=== PATIENT | female | born 1980 | race African-American/Black ===

== ENCOUNTER 2016-11-22 17:46 | Emergency (ER) | payer MEDICAID ==
[~2016-11-22] VITALS: Ht 175.3 cm; Wt 72.6 kg
[~2016-11-22 17:46] MED LIST: AUGMENTIN TAB875 MG ORAL; IBUPROFEN800 MG ORAL; NORCO 5-325 TA1 EACH ORAL
[2016-11-22 18:13] VITALS: BP 125/70
[2016-11-22] MEDS ORDERED: PredniSONE 20mg tab ORAL ONE (18:15)
[2016-11-22] MEDS ORDERED: PREDNISONE20 MG ORAL (18:23)
[2016-11-22] MEDS ORDERED: BENADRYL25 MG ORAL (18:23)
[2016-11-22 18:29] VITALS: BP 125/70
--- NOTE | 2016-11-22 21:44 | Emergency Room Report ---
History of Present Illness General Chief Complaint: Skin Rash/Abscess Source: Patient Present Illness HPI The patient is a 36-year-old female presenting for possible allergic reaction. The patient noticed intense itching , redness, and swelling of the arms, abdomen , and legs. She states that she used Benadryl and topical hydrocortisone which helped a little. The patient still complaining of intense itching. She denies any known allergies. She denies using any new products. She denies any pain. He denies shortness of breath, chest pain, throat tightness or pain, nausea, vomiting, fever, chills, dizziness Allergies: Coded Allergies: No Known Allergies (Unverified , 03/08/12) Patient History Past Medical History: see triage record Pertinent Family History: none Last Menstrual Period: 11/21/16 Now: No Reviewed Nursing Documentation: PMH: Agreed, PSxH: Agreed Nursing Documentation-PMH Past Medical History: No Stated History Review of Systems All Other Systems: negative except mentioned in HPI Physical Exam Vital Signs Date Time Temp Pulse Resp B/P Pulse Ox O2 Delivery O2 Flow Rate FiO2 11/22/16 17:59 98.2 65 14 125/70 100 Room Air Sp02 EP Interpretation: reviewed, normal General Appearance: no apparent distress, alert, GCS 15, non-toxic Head: normocephalic, atraumatic Eyes: bilateral eye PERRL, bilateral eye normal inspection ENT: hearing grossly normal, normal pharynx, no angioedema, normal voice Neck: full range of motion, supple/symm/no masses Respiratory: chest non-tender, lungs clear, normal breath sounds, speaking full sentences Gastrointestinal: normal bowel sounds, non tender, soft, non-distended, no guarding, no rebound Musculoskeletal: back normal, gait/station normal, normal range of motion, non- tender Neurologic: alert, oriented x3, responsive, motor strength/tone normal, sensory intact, speech normal Psychiatric: judgement/insight normal, memory normal, mood/affect normal, no suicidal/homicidal ideation Skin: rash - maculopapular rash of bilat arms and chest Lymphatic: no adenopathy Medical Decision Making PA Attestation Dr. Nelson is my supervising physician. Patient management was discussed with my supervising physician Diagnostic Impression: Primary Impression: Allergic reaction Qualified Codes: T78.40XA - Allergy, unspecified, initial encounter ER Course The patient is a 36-year-old female presenting for possible allergic reaction. Ddx considered include but not limited to insect bite, contact dermatitis, eczema, cellulitis Physical exam: Vitals within normal limits. No apparent distress HEENT exam is unremarkable. Oropharynx is patent. No angioedema. Lungs CTA bilat Skin: warm and dry. maculopapular rash diffusely over bilat arms. The patient is given prednisone in the ER. She is discharged home with a prescription for prednisone and Benadryl. ER precautions given Last Vital Signs Date Time Temp Pulse Resp B/P Pulse Ox O2 Delivery O2 Flow Rate FiO2 11/22/16 18:29 98.2 14 125/70 100 Room Air 11/22/16 17:59 65 Status: improved Disposition: HOME, SELF-CARE Condition: Improved Scripts Prednisone* (PREDNISONE*) 20 Mg Tablet 40 MG ORAL DAILY, #8 TAB Prov: ANNMARIE LEONE.A. 11/22/16 Diphenhydramine Hcl* (BENADRYL*) 25 Mg Capsule 25 MG ORAL Q6H Y for Itching, #15 CAP Prov: ANNMARIE LEONE.A. 11/22/16 Patient Instructions: Rash Additional Instructions: I discussed my findings with the patient. All questions and concerns have been answered. Treatment and medication compliance have been addressed. I advised the patient that they need to follow up with PMD in 3-5 days. Return to ED if symptoms worsen, new symptoms arise, or if needed for any reason. Patient verbalized understanding of discharge instructions. The patient was informed she may need to see talent scout. ANNMARIE LEONE November 22, 2016 21:44
== END 2016-11-22 18:29 | disposition home or self-care (01) ==
LOC: EMR 18:15
DX: T78.40XA Allergy, unspecified, initial encounter (principal); X58.XXXA Exposure to other specified factors, initial encounter; R21 Rash and other nonspecific skin eruption; L29.9 Pruritus, unspecified
CPT/HCPCS: 99284

== ENCOUNTER 2016-11-24 17:22 | Emergency (ER) | payer MEDICAID ==
[~2016-11-24] VITALS: Ht 175.3 cm; Wt 72.6 kg
[~2016-11-24 17:22] MED LIST changes: +BENADRYL25 MG ORAL; +PREDNISONE20 MG ORAL
[2016-11-24 17:51] VITALS: BP 129/82
[2016-11-24] MEDS ORDERED: ROBAXIN-750750 MG PO (17:56)
[2016-11-24] MEDS ORDERED: IBUPROFEN600 MG ORAL (17:56)
[2016-11-24] MEDS ORDERED: AMOXICILLIN500 MG ORAL (17:56)
[2016-11-24 18:06] VITALS: BP 129/82
--- NOTE | 2016-11-24 21:17 | Emergency Room Report ---
History of Present Illness General Chief Complaint: Neck Pain Source: Patient Present Illness [facility] The patient is a 36-year-old female presenting with left-sided neck pain. She states that she was reaching for an object at work 2 weeks prior and noticed a sharp sensation to the left side of the neck. Pain described as an 8/10 and does not radiate. Pain worse with head movement. She denies previous injury to the area. She also noticed a bump behind ear 2 days prior. She denies any recent infections and denies ear pain. She denies any other symptoms including nausea , vomiting, fever, chills, fatigue, night sweats, weight loss, cough Allergies: Coded Allergies: No Known Allergies (Unverified , 03/08/12) Patient History Past Medical History: see triage record Pertinent Family History: none Last Menstrual Period: 11/20/16 Now: No Reviewed Nursing Documentation: PMH: Agreed, PSxH: Agreed Nursing Documentation-PMH Past Medical History: No Stated History Review of Systems All Other Systems: negative except mentioned in HPI Physical Exam Vital Signs Date Time Temp Pulse Resp B/P Pulse Ox O2 Delivery O2 Flow Rate FiO2 11/24/16 17:30 97.9 71 15 129/82 99 Room Air Sp02 EP Interpretation: reviewed, normal General Appearance: no apparent distress, alert, GCS 15, non-toxic Head: normocephalic, atraumatic Eyes: bilateral eye PERRL, bilateral eye normal inspection ENT: normal pharynx, normal voice, TMs + canals normal, uvula midline Neck: full range of motion, supple, no bony tend, tender lateral - L Respiratory: chest non-tender, lungs clear, normal breath sounds, speaking full sentences Cardiovascular #1: regular rate, rhythm, no edema Musculoskeletal: back normal, gait/station normal, normal range of motion Neurologic: alert, oriented x3, responsive, motor strength/tone normal, sensory intact, speech normal Psychiatric: judgement/insight normal, memory normal, mood/affect normal, no suicidal/homicidal ideation Skin: normal color, no rash, warm/dry, well hydrated Lymphatic: other - singular lymph node enlargement of L posterior auricular Medical Decision Making PA Attestation Dr. Henry is my supervising physician. Patient management was discussed with my supervising physician Diagnostic Impression: Primary Impression: Enlarged lymph node in neck Additional Impression: Neck strain Qualified Codes: S16.1XXA - Strain of muscle, fascia and tendon at neck level , initial encounter ER Course The patient is a 36-year-old female presenting with left-sided neck pain Differential diagnoses considered but not limited to: Muscle strain, muscle spasm, lymphangitis, lymphoma, otitis media, pharyngitis, among others PE: vitals WNL. NAD Neck: There is tenderness to palpation over left paraspinous muscles. Full active range of motion. No obvious deformity. No midline tenderness HEENT: singular posterior auricular lymph node enlargement of L side. Mobile. Tender. 2cm in diameter. The patient to be discharged home with a prescription for Motrin, Robaxin, and a trial of amoxicillin. She needs to followup with primary doctor or ENT as soon as possible for further evaluation of lymph node. ER precautions given Last Vital Signs Date Time Temp Pulse Resp B/P Pulse Ox O2 Delivery O2 Flow Rate FiO2 11/24/16 18:06 97.9 15 129/82 99 Room Air 11/24/16 17:30 71 Status: improved Disposition: HOME, SELF-CARE Condition: Improved Scripts Amoxicillin* (AMOXIL*) 500 Mg Capsule 500 MG ORAL Q12HR, #20 CAP Prov: ANNMARIE LEONE P.A. 11/24/16 Ibuprofen* (MOTRIN*) 600 Mg Tablet 600 MG ORAL Q8H Y for For Pain, #30 TAB 0 Refills Prov: TERZIANANNMARIE P.A. 11/24/16 Methocarbamol* (ROBAXIN-750*) 750 Mg Tablet 750 MG PO TID, #21 TAB 0 Refills Prov: SASHAANANNMARIE P.A. 11/24/16 Patient Instructions: Lymphadenopathy, Muscle Strain Additional Instructions: I discussed my findings with the patient. All questions and concerns have been answered. Treatment and medication compliance have been addressed. Return to ED if symptoms worsen, new symptoms arise, or if needed for any reason. Patient verbalized understanding of discharge instructions. The patient will followup with primary doctor as soon as possible for further evaluation of the enlarged lymph node. Patient is informed she may undergo testing such as imaging and/or biopsy ANNMARIE LEONE November 24, 2016 21:17
== END 2016-11-24 18:08 | disposition home or self-care (01) ==
LOC: EMR 17:52
DX: R59.0 Localized enlarged lymph nodes (principal); S16.1XXA Strain of muscle, fascia and tendon at neck level, initial encounter; X50.9XXA Other and unspecified overexertion or strenuous movements or postures, initial encounter; Y92.89 Other specified places as the place of occurrence of the external cause
CPT/HCPCS: 99284

== ENCOUNTER 2017-04-07 08:44 | Emergency (ER) | payer MEDICAID ==
[~2017-04-07] VITALS: Ht 175.3 cm; Wt 77.1 kg
[~2017-04-07 08:44] MED LIST changes: +AMOXICILLIN500 MG ORAL; +IBUPROFEN600 MG ORAL; +ROBAXIN-750750 MG PO
[2017-04-07] MEDS ORDERED: NKM (08:55)
[2017-04-07 09:02] VITALS: BP 118/76
[2017-04-07] MEDS ORDERED: PREDNISONE20 MG ORAL (09:41)
[2017-04-07 09:59] VITALS: BP 118/76
--- NOTE | 2017-04-07 12:21 | Emergency Room Report ---
History of Present Illness General Chief Complaint: Skin Rash/Abscess Source: Patient Present Illness HPI 36-year-old female no significant past medical history presenting with itchy rash to rash on arms for one week. Denies any shortness of breath, throat swelling, fever or chills. Denies any new medication, pets, new detergents. States that she has been scratching has been taking Benadryl without relief Allergies: Coded Allergies: No Known Allergies (Unverified , 03/08/12) Patient History Past Medical History: see triage record Past Surgical History: none Pertinent Family History: none Last Menstrual Period: 02/2017 Reviewed Nursing Documentation: PMH: Agreed, PSxH: Agreed Nursing Documentation-PMH Past Medical History: No Stated History Review of Systems All Other Systems: negative except mentioned in HPI Physical Exam Vital Signs Date Time Temp Pulse Resp B/P (MAP) Pulse Ox O2 Delivery O2 Flow Rate FiO2 04/07/17 08:52 98.1 82 14 118/76 99 Room Air Sp02 EP Interpretation: reviewed, normal General Appearance: alert, GCS 15, non-toxic, mild distress Head: normocephalic, atraumatic Eyes: bilateral eye normal inspection, bilateral eye PERRL, bilateral eye EOMI ENT: normal ENT inspection, normal pharynx, normal voice, moist mucus membranes Neck: normal inspection, full range of motion, supple Respiratory: normal inspection, lungs clear, normal breath sounds, no respiratory distress, no retraction, no wheezing, speaking full sentences, chest symmetrical Cardiovascular #1: normal inspection, regular rate, rhythm, no edema, normal capillary refill Cardiovascular #2: 2+ radial (R), 2+ radial (L) Gastrointestinal: normal inspection, non tender, soft, non-distended, no guarding Musculoskeletal: normal inspection, back normal, normal range of motion, non- tender Neurologic: normal inspection, alert, oriented x3, responsive, motor strength/ tone normal, sensory intact, normal gait, speech normal Psychiatric: normal inspection, judgement/insight normal, memory normal Skin: warm/dry, well hydrated, normal turgor, other - Diffuse/several blanching small erythematous circular rash on arms and chest, excoriation amador , nontender Medical Decision Making Diagnostic Impression: Primary Impression: Rash and other nonspecific skin eruption ER Course 36-year-old female with rash for one week Appears to be allergic rash, no overlying cellulitis Plan: Prednisone ER course: Patient has been stable during ED stay No respiratory symptoms or angioedema. Disposition: Patient is to be discharged to home with prescription of prednisone Strict return precautions to the ED discussed with patient including worsening/ persistent symptoms, throat swelling, or shortness of breath, which may indicate severe illness. Patient verbalized understanding. Patient is to follow up with their primary care doctor within 5 days. Patient agrees with plan. Last Vital Signs Date Time Temp Pulse Resp B/P (MAP) Pulse Ox O2 Delivery O2 Flow Rate FiO2 04/07/17 09:59 98.1 72 14 118/76 99 Room Air Disposition: HOME, SELF-CARE Condition: Improved Scripts Prednisone* (PREDNISONE*) 20 Mg Tablet 40 MG ORAL DAILY for 4 Days, #4 TAB 0 Refills Prov: Lois Miguel M.D. 04/07/17 Referrals: [facility],REFERRING (PCP) Patient Instructions: Rash Additional Instructions: PLEASE FOLLOW UP WITH YOUR PRIMARY CARE DOCTOR IN 1 WEEK PLEASE FOLLOW UP WITH DERMATOLOGY IF NOT BETTER IN 1 WEEK Please come back to the emergency dept if you are experiencing high fever, chills, spread of rash, shortness of breath, tongue or throat swelling Lois Miguel M.D. Apr 07, 2017 12:21
== END 2017-04-07 10:01 | disposition home or self-care (01) ==
LOC: EMR 09:04
DX: R21 Rash and other nonspecific skin eruption (principal)
CPT/HCPCS: 99283

== ENCOUNTER 2018-07-09 16:07 | Emergency (ER) | payer MEDICAID ==
[~2018-07-09] VITALS: Ht 175.3 cm; Wt 68.0 kg
[~2018-07-09 16:07] MED LIST changes: +NKM
[2018-07-09 16:30] VITALS: BP 118/72
[2018-07-09] MEDS ORDERED: Acetaminophen 500mg (ES) tab ORAL ONE (16:45)
[2018-07-09] MEDS ORDERED: Methocarbamol 500mg tab ORAL ONE (16:45)
[2018-07-09] MEDS ORDERED: LIDOCAINE700 M1 TP (17:13)
[2018-07-09] MEDS ORDERED: TYLENOL EXTRA500 MG ORAL (17:13)
[2018-07-09] MEDS ORDERED: ROBAXIN500 MG PO (17:13)
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
[2018-07-09 17:30] VITALS: BP 122/75
--- NOTE | 2018-07-09 17:30 | NUR ---
ED Nurse Note: patient is being discharged from ED alert and oriented x4, ambulatory with a steady gait, VSS. patient acknowledged the need to follow up with PMD within a week if symptoms dont improvee, ID band removed
== END 2018-07-09 17:30 | disposition home or self-care (01) ==
LOC: EMR 16:38
DX: M54.2 Cervicalgia (principal); M25.519 Pain in unspecified shoulder; V43.52XA Car driver injured in collision with other type car in traffic accident, initial encounter; Y92.414 Local residential or business street as the place of occurrence of the external cause
CPT/HCPCS: 99282

== ENCOUNTER 2019-03-22 05:11 | Emergency (ER) | payer MEDICAID ==
[~2019-03-22] VITALS: Ht 175.3 cm; Wt 77.1 kg
[~2019-03-22 05:11] MED LIST changes: +LIDOCAINE700 M1 TP; +ROBAXIN500 MG PO; +TYLENOL EXTRA500 MG ORAL
--- NOTE | 2019-03-22 05:30 | NUR ---
ED Nurse Note: pt walked in c/o flu like sx for about a week, pt reports she's been having cough, diarrhea, and weakness but denies fever at this time. pt afebrile in triage. pt vss, resp even and unlabored on RA, will cont monitor.
[2019-03-22] MEDS ORDERED: Ipratropium 0.02% Inh Soln 2.5ml UD HHN ONE (05:45)
[2019-03-22] MEDS ORDERED: Albuterol ud Inhalation HHN ONE (05:45)
[2019-03-22 05:51] VITALS: BP 137/80
--- NOTE | 2019-03-22 05:53 | Emergency Room Report ---
History of Present Illness General Chief Complaint: Upper Respiratory Illness Source: Patient Present Illness HPI 38-year-old female presents with cough, productive, no aggravating relieving factors x1 week, patient endorses some shortness of breath and chest tightness, she endorsed some congestion no fevers no chills no dyspnea on exertion patient severity is mild, constant patient presents for evaluation. Allergies: Coded Allergies: No Known Allergies (Unverified , 03/22/19) Patient History Past Medical History: see triage record Social History: Reports: smoking Last Menstrual Period: 03-23-2019 Now: No Reviewed Nursing Documentation: PMH: Agreed; PSxH: Agreed Nursing Documentation-PMH Past Medical History: No Stated History Review of Systems All Other Systems: negative except mentioned in HPI Physical Exam Vital Signs Date Time Temp Pulse Resp B/P (MAP) Pulse Ox O2 Delivery O2 Flow Rate FiO2 03/22/19 05:21 98.6 92 16 137/80 (99) 96 Room Air General Appearance: well appearing, no apparent distress Head: normocephalic, atraumatic ENT: hearing grossly normal, normal voice, nasal congestion Neck: full range of motion, supple Respiratory: lungs clear, no respiratory distress, no retraction, no accessory muscle use, decreased breath sounds, speaking full sentences Cardiovascular #1: regular rate, rhythm, no edema, no murmur Musculoskeletal: normal inspection, normal range of motion Neurologic: alert, normal gait Psychiatric: mood/affect normal Skin: no rash Medical Decision Making Diagnostic Impression: Primary Impression: Upper respiratory infection Qualified Codes: J06.9 - Acute upper respiratory infection, unspecified Additional Impression: Bronchitis ER Course 38-year-old female presents with cough, congestion, most likely viral URI, component of bronchitis, low suspicion for pneumonia Chest x-ray negative will provide breathing treatments, patient is a smoker. Disposition home with return precautions Chest X-Ray Diagnostic Results Chest X-Ray Diagnostic Results : Chest X-Ray Ordered: Yes # of Views/Limited/Complete: 1 View Indication: Shortness of Breath EP Interpretation: Yes Interpretation: no consolidation, no effusion, no pneumothorax, no acute cardiopulmonary disease Impression: No acute disease Electronically Signed by: Anuj Gaona MD Last Vital Signs Date Time Temp Pulse Resp B/P (MAP) Pulse Ox O2 Delivery O2 Flow Rate FiO2 03/22/19 05:21 98.6 92 16 137/80 (99) 96 Room Air Disposition: HOME, SELF-CARE Condition: Stable Scripts Albuterol Sulfate* (ALBUTEROL SULFATE MDI*) 8.5 Gm Hfa.aer.ad 2 PUFF INH Q4H PRN for cough/wheezing, #1 EA 0 Refills Prov: Anuj Gaona MD 03/22/19 Prednisone* (PREDNISONE*) 50 Mg Tablet 50 MG ORAL DAILY, #4 TAB 0 Refills Prov: Anuj Gaona MD 03/22/19 Referrals: [facility],REFERRING (PCP) [facility] Patient Instructions: Acute Bronchitis, [id number], Smoking Cessation, Tips for Success, [id number], Smoking Hazards, Steps to Quit Smoking, Upper Respiratory Infection, Adult Additional Instructions: The patient was provided with discharge instructions, notified to follow-up with a primary care doctor and or specialist in the next 24-48 hours, and to return to the ED if they have worsening of their symptoms. Please note that this report is being documented using [employer] technology. This can lead to erroneous entry secondary to incorrect interpretation by the dictating instrument. Anuj Gaona MD Mar 22, 2019 05:53
[2019-03-22] MEDS ORDERED: ALBUTEROL SULF8.5 GM INH (05:57)
[2019-03-22] MEDS ORDERED: PREDNISONE50 MG ORAL (05:57)
[2019-03-22 06:22] VITALS: BP 128/80
--- NOTE | 2019-03-22 06:22 | NUR ---
ER DISCHARGE NOTE: Patient is cleared to be discharged per ERMD, pt is aox4, on room air, with stable vital signs. pt was given dc and prescription instructions, pt was able to verbalize understanding, pt id band removed pt is able to ambulate with steady gait. pt took all belongings.
--- NOTE | 2019-03-22 09:31 | Diagnostic Imaging Report ---
Indication: Cough Comparison: None A single view chest radiograph was obtained. Findings: Cardiomediastinal appearance is within normal limits for age. The lungs are clear. Pulmonary vascularity is appropriate. The diaphragmatic contour is smooth and costophrenic angles are sharp. No pleural effusions are identified. The bones are unremarkable. Impression: No acute findings
== END 2019-03-22 06:22 | disposition home or self-care (01) ==
LOC: EMR 05:32
DX: J20.9 Acute bronchitis, unspecified (principal); J06.9 Acute upper respiratory infection, unspecified
CPT/HCPCS: 71045; 81025; 94640; 94664; J7512; Z7502; 99284

== ENCOUNTER 2019-09-22 10:33 | Emergency (ER) | payer MEDICAID ==
[~2019-09-22] VITALS: Ht 175.3 cm; Wt 84.8 kg
[~2019-09-22 10:33] MED LIST changes: +ALBUTEROL SULF8.5 GM INH; +PREDNISONE50 MG ORAL
[2019-09-22] MEDS ORDERED: PRENA1 CHEW TA1.4 MG PO (10:40)
--- NOTE | 2019-09-22 10:40 | NUR ---
ED Nurse Note: Patient walked into ED c/o intermittent vaginal spotting x 2 days. Patient states she is 11 weeks , this is the 2nd . Patient has no c/o vaginal or abdominal pain. Patient AxO x 4, no s/s of acute distress. 20 g IV started in left AC. Blood and urine sent to lab.
--- NOTE | 2019-09-22 10:52 | Emergency Room Report ---
History of Present Illness General Chief Complaint: Complications Source: Patient Present Illness HPI Disclaimer: Please note that this report is being documented using [employer] technology. This can lead to erroneous entry secondary to incorrect interpretation by the dictating instrument. HPI: 38-year-old G2, P1 female 11 weeks gestation by LMP presents for evaluation of vaginal bleeding. Patient states she had a positive urine test several weeks ago and believes she is approximately 11 weeks. Has not followed up with OB yet. Proximally 5 days ago she noted 1 episode of vaginal bleeding which resolved. There is no abdominal pain and denies any recent fever, nausea, diarrhea, dysuria, hematuria. She notes intermittent nausea. Yesterday she had spotting throughout the day but no iris vaginal bleeding or vaginal discharge. No bleeding today. Has not been able to see her new [employer]. Denies recent travel. Denies trauma. Has been taking vitamins. Denies drug or alcohol use. PMH: Denies PSH: Denies Allergies: Denies Social Hx: Eyes Allergies: Coded Allergies: No Known Allergies (Unverified , 03/22/19) COVID-19 Screening Contact w/high risk pt: No Recent Travel to affected area: No Experienced COVID-19 symptoms?: No Patient History Last Menstrual Period: 07/06/19 Now: Yes Nursing Documentation-PMH Past Medical History: No Stated History Review of Systems All Other Systems: negative except mentioned in HPI Physical Exam Vital Signs Date Time Temp Pulse Resp B/P (MAP) Pulse Ox O2 Delivery O2 Flow Rate FiO2 09/22/19 10:37 99.0 85 18 122/60 (80) 98 Room Air General: Awake and alert, no acute distress HEENT: NC/AT. EOMI. Cardiovascular: RRR. S1 and S2 normal. No murmur appreciated Resp: Normal work of breathing. No cough, wheezing or crackles appreciated Abdomen: Abdomen is soft, nondistended. Nontender Skin: Intact. No abrasions, laceration or rash over the exposed skin MSK: Normal tone and bulk. Moving all extremities. No obvious deformity. Neuro: Awake and alert. Mentating appropriately. Medical Decision Making Diagnostic Impression: Primary Impression: Vaginal bleeding during Additional Impression: Subchorionic hematoma in first trimester ER Course 38-year-old G2, P1 female presenting for evaluation of intermittent vaginal spotting over the past week. Differential includes but is not limited to placenta previa, threatened , inevitable , ectopic , UTI to name a few. Will check blood counts, type and screen, order an ultrasound of the pelvis. She is well-appearing with stable vital signs. Laboratory Tests Test 09/22/19 10:40 09/22/19 10:50 White Blood Count 7.9 K/UL (4.8-10.8) Red Blood Count 4.72 M/UL (4.20-5.40) Hemoglobin 14.4 G/DL (12.0-16.0) Hematocrit 40.5 % (37.0-47.0) Mean Corpuscular Volume 86 FL (80-99) Mean Corpuscular Hemoglobin 30.4 PG (27.0-31.0) Mean Corpuscular Hemoglobin Concent 35.4 G/DL (32.0-36.0) Red Cell Distribution Width 11.2 % (11.6-14.8) L Platelet Count 306 K/UL (150-450) Mean Platelet Volume 6.6 FL (6.5-10.1) Neutrophils (%) (Auto) 65.6 % (45.0-75.0) Lymphocytes (%) (Auto) 24.9 % (20.0-45.0) Monocytes (%) (Auto) 5.9 % (1.0-10.0) Eosinophils (%) (Auto) 2.1 % (0.0-3.0) Basophils (%) (Auto) 1.4 % (0.0-2.0) Sodium Level 139 MMOL/L (136-145) Potassium Level 4.0 MMOL/L (3.5-5.1) Chloride Level 103 MMOL/L (98-107) Carbon Dioxide Level 22 MMOL/L (21-32) Anion Gap 14 mmol/L (5-15) Blood Urea Nitrogen 6 mg/dL (7-18) L Creatinine 0.7 MG/DL (0.55-1.30) Estimated Glomerular Filtration Rate > 60 mL/min (>60) Glucose Level 96 MG/DL (74-106) Calcium Level 10.0 MG/DL (8.5-10.1) Human Chorionic Gonadotropin, Quant 40109 mIU/mL (1-6) H Urine Color Pale yellow Urine Appearance Clear Urine pH 6.5 (4.5-8.0) Urine Specific [place] 1.010 (1.005-1.035) Urine Protein Negative (NEGATIVE) Urine Glucose (UA) Negative (NEGATIVE) Urine Ketones Negative (NEGATIVE) Urine Blood 1+ (NEGATIVE) H Urine Nitrite Negative (NEGATIVE) Urine Bilirubin Negative (NEGATIVE) Urine Urobilinogen Normal MG/DL (0.0-1.0) Urine Leukocyte Esterase 1+ (NEGATIVE) H Urine RBC 0-2 /HPF (0 - 2) Urine WBC 5-10 /HPF (0 - 2) H Urine Squamous Epithelial Cells Few /LPF (NONE/OCC) Urine Bacteria Few /HPF (NONE) CT/MRI/US Diagnostic Results CT/MRI/US Diagnostic Results : Impression Final Report EXAM: US First Trimester , Transabdominal CLINICAL HISTORY: BLD TECHNIQUE: Real-time transabdominal obstetrical ultrasound of the maternal pelvis and a first trimester with image documentation. COMPARISON: None FINDINGS: Uterus: Measures 9.5 x 8.2 x 8.0 cm. Gestational sac identified within the endometrial cavity, with mean sac diameter measuring 5.80 cm. Possible component of subchorionic hemorrhage . An embryonic pole is identified. [place]- rump length measures 4.8 cm. heart rate 154 bpm. Cervix is long and closed. Placenta/amniotic fluid: Cannot be adequately evaluated due to the early gestational age. Ovaries: The ovaries are not visualized on this exam due to overlying bowel gas. Other: No free fluid is identified. No adnexal mass. LMP: 07/06/2019 GA by LMP: 11 weeks 1 day AM[place] by LMP: 04/11/2020 Average ultrasound age: 12 weeks 1 day AM[place] by ultrasound: 04/04/2020 IMPRESSION: Single intrauterine with heart rate of 154 bpm. Question component of subchorionic hemorrhage. Radiologist: Tammy Esquivel M.D. Electronically Signed: 09/22/19 12:03 Study ready at 11:51 and initial results transmitted at 12:03 Last Vital Signs Date Time Temp Pulse Resp B/P (MAP) Pulse Ox O2 Delivery O2 Flow Rate FiO2 09/22/19 10:37 99.0 85 18 122/60 (80) 98 Room Air Reevaluation Impression Labs within normal limits. Possible subchorionic hemorrhage though this is questionable. The patient will have repeat imaging at her [employer] visit. Labs otherwise within normal limits. No other findings on ultrasound. Blood type is O+. Does not require RhoGam. Will be treated for asymptomatic pyuria on Keflex and start on B6 for nausea. Will follow-up with [employer]. Copies of imaging and lab results were included in her paperwork. Discussed isolation precautions given the connors virus outbreak. She is to return to the emergency room new or worsening symptoms. She understands and agrees with the treatment plan. Disposition: HOME, SELF-CARE Condition: Stable Scripts Pyridoxine Hcl (PYRIDOXINE HCL) 25 Mg Tablet 25 MG PO TID PRN for Nausea & Vomiting for 10 Days, #40 TAB Prov: Juan Zheng MD 09/22/19 Cephalexin* (KEFLEX*) 500 Mg Capsule 500 MG ORAL EVERY 12 HOURS, #14 CAP 0 Refills Prov: Juan Zheng MD 09/22/19 Juan Zheng MD Sep 22, 2019 10:52
[2019-09-22 11:20] LABS: APPEARANCE,URINE CLEAR; BILIRUBIN, URINE NEGATIVE (NEGATIVE); COLOR,URINE PALE YELLOW; GLUCOSE, URINE (UA) NEGATIVE (NEGATIVE); KETONES,URINE NEGATIVE (NEGATIVE); LEUKOCYTE ESTERASE ,URINE 1+ (NEGATIVE); NITRITE,URINE NEGATIVE (NEGATIVE); PH,URINE 6.5 (4.5-8.0); PROTEIN,URINE NEGATIVE (NEGATIVE); UROBILINOGEN,URINE NORMAL MG/DL (0.0-1.0)
[2019-09-22 11:22] LABS: BASOPHILS % (AUTO) 1.4 % (0.0-2.0); EOSINOPHILS % (AUTO) 2.1 % (0.0-3.0); HEMATOCRIT 40.5 % (37.0-47.0); HEMOGLOBIN 14.4 G/DL (12.0-16.0); LYMPHOCYTES % (AUTO) 24.9 % (20.0-45.0); MEAN CORPUSCULAR VOLUME 86 FL (80-99); MONOCYTES % (AUTO) 5.9 % (1.0-10.0); NEUTROPHILS % (AUTO) 65.6 % (45.0-75.0); PLATELET COUNT 306 K/UL (150-450); RED BLOOD COUNT 4.72 M/UL (4.20-5.40); RED CELL DISTRIBUTION WIDTH 11.2 % (11.6-14.8); WHITE BLOOD COUNT 7.9 K/UL (4.8-10.8)
[2019-09-22 11:43] LABS: ANION GAP 14 mmol/L (5-15); BLOOD UREA NITROGEN 6 mg/dL (7-18); CARBON DIOXIDE 22 MMOL/L (21-32); CHLORIDE 103 MMOL/L (98-107); CREATININE 0.7 MG/DL (0.55-1.30); SODIUM 139 MMOL/L (136-145)
--- NOTE | 2019-09-22 12:04 | Diagnostic Imaging Report ---
EXAM: US First Trimester , Transabdominal CLINICAL HISTORY: BLD TECHNIQUE: Real-time transabdominal obstetrical ultrasound of the maternal pelvis and a first trimester with image documentation. COMPARISON: None FINDINGS: Uterus: Measures 9.5 x 8.2 x 8.0 cm. Gestational sac identified within the endometrial cavity, with mean sac diameter measuring 5.80 cm. Possible component of subchorionic hemorrhage . An embryonic pole is identified. [place]-rump length measures 4.8 cm. heart rate 154 bpm. Cervix is long and closed. Placenta/amniotic fluid: Cannot be adequately evaluated due to the early gestational age. Ovaries: The ovaries are not visualized on this exam due to overlying bowel gas. Other: No free fluid is identified. No adnexal mass. LMP: 07/06/2019 GA by LMP: 11 weeks 1 day AM[place] by LMP: 04/11/2020 Average ultrasound age: 12 weeks 1 day AM[place] by ultrasound: 04/04/2020 IMPRESSION: Single intrauterine with heart rate of 154 bpm. Question component of subchorionic hemorrhage.
[2019-09-22] MEDS ORDERED: CEPHALEXIN500 MG ORAL (12:29)
[2019-09-22] MEDS ORDERED: PYRIDOXINE HCL25 MG PO (12:29)
[2019-09-22 12:35] VITALS: BP 122/60
== END 2019-09-22 12:35 | disposition home or self-care (01) ==
LOC: EMR 10:46
DX: O46.91 Antepartum hemorrhage, unspecified, first trimester (principal); O20.8 Other hemorrhage in early pregnancy; Z3A.11 11 weeks gestation of pregnancy
CPT/HCPCS: 36415; 76801; 76817; 80048; 81003; 84702; 85025; 86850; 86900; 86901; Z7502; 99284